=== PATIENT | male | born 1965 | race Caucasian/White ===

== ENCOUNTER → 2017-02-03 | Outpatient (CLI) | payer OTHER ==
[2017-02-03 11:47] LABS: AUTOMATED NEUTROPHIL # 2.3 TH/MM3 (1.8-7.7); BASOPHIL % 0.7 % (0.0-2.0); EOSINOPHIL # 0.3 TH/MM3 (0-0.4); EOSINOPHIL % 6.1 % (0.0-4.0); HEMO FLAGS DIFF FINAL; LYMPH % 31.6 % (9.0-44.0); LYMPHOCYTE # 1.4 TH/MM3 (1.0-4.8); MEAN CELL VOLUME 92.6 FL (80.0-100.0); MEAN CORPUSCULAR HEMOGLOBIN 31.5 PG (27.0-34.0); MONO % 9.3 % (0.0-8.0); NEUT % 52.3 % (16.0-70.0); PLATELET COUNT 163 TH/MM3 (150-450); RED BLOOD COUNT 4.54 MIL/MM3 (4.50-5.90); RED CELL DISTRIBUTION WIDTH 12.5 % (11.6-17.2); WHITE BLOOD COUNT 4.4 TH/MM3 (4.0-11.0)
[2017-02-03 11:55] LABS: ALT (GPT) 29 U/L (12-78)
[2017-02-03 12:06] LABS: ALKALINE PHOSPHATASE 59 U/L (45-117); ANION GAP 8 MEQ/L (5-15); AST (GOT) 33 U/L (15-37); BICARBONATE 28.5 MEQ/L (21.0-32.0); BLOOD UREA NITROGEN 17 MG/DL (7-18); CHLORIDE 102 MEQ/L (98-107); GLOMERULAR FILTRATION RATE 77 ML/MIN (>89); GLUCOSE,FASTING 94 MG/DL (74-99); HDL CHOLESTEROL 63.4 MG/DL (40.0-60.0); POTASSIUM 4.4 MEQ/L (3.5-5.1); SODIUM (NA) 138 MEQ/L (136-145); TOTAL BILIRUBIN ADULT 0.6 MG/DL (0.2-1.0)
== END ==
LOC: CLAB 11:07
PROVIDERS: ATTEND Nurse Practitioner Family
DX: R03.0 Elevated blood-pressure reading, without diagnosis of hypertension (principal)
CPT/HCPCS: 36415; 80053; 80061; 84443; 85025

== ENCOUNTER → 2017-02-21 | Outpatient (CLI) | payer OTHER ==
--- NOTE | 2017-02-23 08:13 | EKG ---
Date Performed: 02/21/2017 Time Performed: 14:13:19 PTAGE: 52 years EKG: Sinus rhythm NORMAL ECG NO PREVIOUS TRACING DOCTOR: Roni Shaw Interpretating Date/Time 02/23/2017 08:06:53
== END ==
LOC: CPRE 13:49
PROVIDERS: ATTEND Specialist
DX: Z01.810 Encounter for preprocedural cardiovascular examination (principal); J33.9 Nasal polyp, unspecified
CPT/HCPCS: 93005

== ENCOUNTER → 2017-02-23 | Day surgery (SDC) | payer OTHER ==
--- NOTE | 2017-02-22 09:41 | MH ---
cc: RAHEEL AMBROCIO M.D. DATE OF ADMISSION 02/23/2017 HISTORY This is a 52-year-old man with a nasal papilloma and nasal obstruction for surgical correction. PAST MEDICAL HISTORY Unremarkable PAST SURGICAL HISTORY Unremarkable REVIEW OF SYSTEMS, FAMILY HISTORY AND SOCIAL HISTORY Unremarkable PHYSICAL EXAMINATION A well-appearing patient in no acute distress is noted. HEENT: Exam reveals left-sided nasal lesion. Biopsy previously noted to be papilloma, septal deviation. Oral cavity and neck within normal limits. LUNGS: Clear. HEART: Regular rate and rhythm. ABDOMEN: Soft and nontender. EXTREMITIES: Without cyanosis, clubbing or edema. NEUROLOGIC: Alert, oriented, nonfocal neurologic exam. IMPRESSION A patient with chronic nasal obstruction and a nasal lesion for excision, septal reconstruction. The patient instructed as to the method of surgery and possible complications to include anesthetic complications, cardiac difficulty, pulmonary difficulty, stroke, coma or even . Surgical complications bleeding, infection, risk of packing, transfusion requirements, reoperation, recurrent papilloma. The patient appeared to agree accept and understand the above-mentioned risks, and benefits. In addition, no guarantees or warranties regarding outcome were given. We will therefore proceed with surgery. MD RENETTA Chirinos/BRYAN /8:50 AM /9:29 AM
[~2017-02-23] VITALS: Ht 180.3 cm; Wt 90.6 kg
[~2017-02-23] MED LIST: *ENALAPRILAT 1.25 MG/ML VIAL PERIprocedural Use ONLY ONE; *LABETALOL HCL 100 MG/20 ML VIAL PERIprocedural Use ONLY ONE; ACETAMINOPHEN 1000 MG/100 ML VIAL IV ONE; ACETAMINOPHEN/HYDROcodone 325 MG/7.5 MG TAB PO PRN; CHLORHEXIDINE GLUCONATE 2 % 1 PACK (2 CLOTHS) TOPICAL PRN; DEXAMETHASONE SOD PHOS 4 MG/ML VIAL ONE; DO NOT ADM ANY ANTICOAGULANT DRUGS PRN; EPINEPHrine HCL (1:1000) 30 MG/30 ML VIAL ONE; FAMOTIDINE 20 MG/2 ML VIAL ONE; INSULIN HUMAN REGULAR 1,000 UNITS/10 ML VIAL SQ PRN; LACTATED RINGER'S 1000 ML IV PRN; LIDOCAINE 1%/EPINEPHrine 1:100,000 SOLN 20 ML VIAL ONE; METOPROLOL TARTRATE 25 MG TAB PO PRN; MIDAZOLAM HCL 2 MG/2 ML VIAL ONE; MORPHINE SULFATE 4 MG/ML INJ IV PUSH PRN; ONDANSETRON HCL 4 MG/2 ML VIAL IV PUSH ONE; ONDANSETRON HCL 4 MG/2 ML VIAL IV PUSH PRN; POVIDONE IODINE 5% (ANTISEPSIS KIT) 4 APPLICATIONS EACH NARE PRN; PROPOFOL 200 MG/20 ML AMP IV ONE; SODIUM CHLORID 0.9% 500 ML IV PRN; SUGAMMADEX SODIUM 200 MG/2 ML VIAL IV PUSH ONE; fentaNYL CITRATE 250 MCG/5 ML AMP ONE
[2017-02-23 07:51] VITALS: BP 164/109; PULSE 86; RESP 18; TEMP 98.1; O2SAT 99
[2017-02-23 12:33] VITALS: BP 136/87; PULSE 86; RESP 18; TEMP 97; O2SAT 98
--- NOTE | 2017-02-24 14:46 | MP ---
cc: RAHEEL AMBROCIO DATE OF SURGERY: 02/23/2017 PREOPERATIVE DIAGNOSIS Nasal obstruction and nasal lesion. PROCEDURE Open septal reconstruction and excision of nasal lesion, left side. ANESTHESIA General anesthesia. ESTIMATED BLOOD LOSS 50 ccs. COMPLICATIONS No complications. OPERATING SURGEON Dr. Ambrocio. PROCEDURE The patient was prepped and draped in usual fashion. 1% Xylocaine 1:100,000 epinephrine injected into nasal septum and large nostril filling nasal lesion on the left side. 1% Xylocaine 1:100,000 epinephrine soaked pledgets were placed in the left and right nostril and then removed. Using a 15 blade an incision was made on the lateral wall encompassing the nasal lesion and surrounding tissue as it was a papilloma and it was completely excised under direct and endoscopic visualization. Significant bleeding was noted from the lateral wall and suction electrocautery was used to stem the bleeding. Mucoperichondrial flap was then made on the left side of the septum and mucoperichondrial flap elevated. A significant amount of bone and cartilage were removed to improve nasal airway and reduce nasal fracture. Mucoperichondrial flap reapproximated and NasoPore dressing was placed on the left side. The patient tolerated the procedure well. MD RENETTA Chirinos/YOSHI /11:16 AM /2:32 PM
== END | disposition home or self-care (01) ==
LOC: HSDC 07:04
PROVIDERS: ATTEND Specialist
DX: J34.89 Other specified disorders of nose and nasal sinuses (principal); J34.2 Deviated nasal septum; R03.0 Elevated blood-pressure reading, without diagnosis of hypertension; J33.0 Polyp of nasal cavity
CPT/HCPCS: 00160; 30520; 31237; 88304; J0131; J0171; J1100; J2250; J2405; J3010; J7120